=== PATIENT | female | born 1995 | race African-American/Black ===

== ENCOUNTER 2016-08-04 17:08 | Emergency (ER) | payer MEDICAID ==
[~2016-08-04] VITALS: Ht 154.9 cm; Wt 66.2 kg
[2016-08-04] MEDS ORDERED: ZANTAC150 MG ORAL (17:29)
[2016-08-04] MEDS ORDERED: MILK OF MA400 MG/51 ORAL (17:29)
[2016-08-04] MEDS ORDERED: CLARITIN-D 241 EACH PO (17:44)
[2016-08-04] MEDS ORDERED: FLONASE ALLERG9.9 ML NS (17:44)
[2016-08-04 17:45] VITALS: BP 120/71
--- NOTE | 2016-08-04 17:45 | Emergency Room Report ---
History of Present Illness General Chief Complaint: Earache Source: Patient Present Illness HPI 21 y/o female c/o bilateral ear pain x 1 week. Assoc sxs include nasal congestion, bilateral ear pressure, and feels like her hearing is blocked. States she tried to clear her ears using valsalva w/o improvement. Patient has a hx of mixed tension VIERA and migraines and states her symptoms feel different than those. Denies taking any medication for her sxs currently. Denies any current n/v/f/c/d, abd pain, back pain, neck pain, photophobia, phonophobia, CP , SOB or headache. Allergies: Coded Allergies: No Known Allergies (Unverified , 08/04/16) Patient History Past Medical History: see triage record Past Surgical History: none Pertinent Family History: none Last Menstrual Period: 07/30/2016 : 0 Para: 0 Immunizations: UTD Reviewed Nursing Documentation: PMH: Agreed, PSxH: Agreed Nursing Documentation-PMH Hx Gastrointestinal Problems: Yes - Gastroenteritis Review of Systems All Other Systems: negative except mentioned in HPI Physical Exam Vital Signs Date Time Temp Pulse Resp B/P Pulse Ox O2 Delivery O2 Flow Rate FiO2 08/04/16 17:24 98.2 86 16 120/71 100 Room Air Sp02 EP Interpretation: reviewed, normal General Appearance: no apparent distress, alert, GCS 15, non-toxic Eyes: bilateral eye PERRL, bilateral eye normal inspection ENT: hearing grossly normal, normal pharynx, no angioedema, normal voice, TMs + canals normal, uvula midline, nasal congestion, other - turbinates boggy and swollen. No sinus tenderness Neck: full range of motion, supple/symm/no masses Respiratory: chest non-tender, lungs clear, normal breath sounds, speaking full sentences Cardiovascular #1: regular rate, rhythm, no edema Musculoskeletal: back normal, gait/station normal, normal range of motion Neurologic: alert, oriented x3, responsive, motor strength/tone normal, sensory intact, speech normal Psychiatric: judgement/insight normal, memory normal, mood/affect normal, no suicidal/homicidal ideation Skin: normal color, no rash, warm/dry, well hydrated Medical Decision Making PA Attestation Dr. Hassan is my supervising physician with whom patient management has been discussed with. Diagnostic Impression: Primary Impression: Sinus headache Additional Impressions: Sinus pressure Earache symptoms in both ears ER Course Pt. presents to the ED c/o ear pain Ddx considered but are not limited to AOM, AOE, Villalta johnson, Sinusitis, Eustachian tube dysfunction, TM Perf, Mastoiditis Vital signs: are WNL, pt. is afebrile H&PE are most consistent with Sinus headache ORDERS: none required at this time, the diagnosis is clinical ED INTERVENTIONS: none required at this time. DISCHARGE: At this time pt. is stable for d/c to home. Will provide printed patient care instructions, and any necessary prescriptions. Care plan and follow up instructions have been discussed with the patient prior to discharge. Last Vital Signs Date Time Temp Pulse Resp B/P Pulse Ox O2 Delivery O2 Flow Rate FiO2 08/04/16 17:45 98.2 16 120/71 100 Room Air 08/04/16 17:24 86 Status: unchanged Disposition: HOME, SELF-CARE Condition: Stable Scripts Fluticasone Propionate (Flonase Allergy Relief) 9.9 Ml [place].susp 2 SPRAYS NS DAILY for 7 Days, #10 ML Prov: REBECCA DARLING.AWarren 08/04/16 Loratadine/Pseudoephedrine (CLARITIN-D 24 HOUR TABLET) 1 Each Tab.er.24h 1 TAB PO DAILY, #14 TAB Prov: REBECCA DARLING P.A. 08/04/16 Patient Instructions: Sinus Headache Additional Instructions: Take medication as directed. Patient advised that most of the time, symptoms start to improve in 7 to 10 days. Patient should return to clinic if their symptoms last more than 10 days, or if your symptoms get better at first but then get worse. Patient instructed to take an [id number] pain reliever to reduce the pain, and to rinse your nose and sinuses with salt water a few times a day. Go to the ER if you experience any: fever higher than 102.5, sudden and severe pain in the face and head, trouble seeing or seeing double, trouble thinking clearly, swelling or redness around one or both eyes, or trouble breathing or a stiff neck. REBECCA DARLING Aug 04, 2016 17:45
== END 2016-08-04 17:45 | disposition home or self-care (01) ==
LOC: EMR 17:40
DX: R51 Headache (principal); H92.03 Otalgia, bilateral; R09.81 Nasal congestion
CPT/HCPCS: 99284